=== PATIENT | female | born 1965 | race Caucasian/White ===

== ENCOUNTER 2016-06-29 09:04 | Day surgery (SDC) | payer OTHER ==
[~2016-06-29] VITALS: Ht 154.9 cm; Wt 59.4 kg
== END 2016-06-29 11:20 | disposition short-term general hospital (02) ==
LOC: SURGOP 09:04
PROC: 0DJD8ZZ Inspection of Lower Intestinal Tract, Via Natural or Artificial Opening Endoscopic (ICD-10-PCS; principal; 2016-06-29)
DX: Z12.11 Encounter for screening for malignant neoplasm of colon (principal); F17.210 Nicotine dependence, cigarettes, uncomplicated; Z88.2 Allergy status to sulfonamides; Z79.899 Other long term (current) drug therapy; Z90.710 Acquired absence of both cervix and uterus; Z98.51 Tubal ligation status; Z98.890 Other specified postprocedural states
CPT/HCPCS: 00810; G0121; J2175; J2250